=== PATIENT | male | born 1965 | race Native Hawaiian/Other Pacific Islander ===

== ENCOUNTER 2019-04-22 07:02 | Outpatient (CLI) | payer BC ==
[2019-04-22 07:42] LABS: PLATELET COUNT 178 K/uL (142-355)
[2019-04-22 08:05] LABS: POTASSIUM 3.6 mmol/L (3.6-5.2)
== END 2019-04-22 20:59 | disposition home or self-care (01) ==
LOC: LABW 07:02
PROVIDERS: Internal Medicine
DX: R60.9 Edema, unspecified (principal)
CPT/HCPCS: 36415; 80053; 80061; 83036; 84153; 84439; 84443; 84550; 85027; 85651

== ENCOUNTER 2020-09-29 11:58 | Outpatient (CLI) | payer OTHER | END 2020-09-29 20:23 | disposition home or self-care (01) | LOC: RAD 11:58 | DX: U07.1 COVID-19 (principal) ==

== ENCOUNTER 2021-04-11 07:55 | Outpatient (CLI) | payer BC ==
[~2021-04-11] VITALS: Ht 170.2 cm; Wt 136.1 kg
== END 2021-04-11 19:31 | disposition home or self-care (01) ==
LOC: DIABINF 07:55
PROVIDERS: ATTEND Internal Medicine Endocrinology, Diabetes & Metabolism
DX: E88.81 Metabolic syndrome and other insulin resistance (principal); E66.01 Morbid (severe) obesity due to excess calories; Z68.42 Body mass index [BMI] 45.0-49.9, adult; G47.33 Obstructive sleep apnea (adult) (pediatric); I10 Essential (primary) hypertension; E78.2 Mixed hyperlipidemia; N18.2 Chronic kidney disease, stage 2 (mild)
CPT/HCPCS: 82948; 96365; 96366; 96521; J1815; J1817

== ENCOUNTER 2021-04-12 07:33 | Outpatient (CLI) | payer BC ==
[~2021-04-12] VITALS: Ht 170.2 cm; Wt 138.8 kg
== END 2021-04-12 21:21 | disposition home or self-care (01) ==
LOC: DIABINF 07:33
PROVIDERS: ATTEND Internal Medicine Endocrinology, Diabetes & Metabolism
DX: E88.81 Metabolic syndrome and other insulin resistance (principal); E66.01 Morbid (severe) obesity due to excess calories; Z68.42 Body mass index [BMI] 45.0-49.9, adult; G47.33 Obstructive sleep apnea (adult) (pediatric); I10 Essential (primary) hypertension; E78.2 Mixed hyperlipidemia; N18.2 Chronic kidney disease, stage 2 (mild)
CPT/HCPCS: 82948; 96365; 96366; 96521; J1815; J1817

== ENCOUNTER 2021-04-18 07:44 | Outpatient (CLI) | payer BC ==
[~2021-04-18] VITALS: Ht 170.2 cm; Wt 138.8 kg
== END 2021-04-18 22:02 | disposition home or self-care (01) ==
LOC: DIABINF 07:44
PROVIDERS: ATTEND Internal Medicine Endocrinology, Diabetes & Metabolism
DX: E88.81 Metabolic syndrome and other insulin resistance (principal); E66.01 Morbid (severe) obesity due to excess calories; Z68.42 Body mass index [BMI] 45.0-49.9, adult; G47.33 Obstructive sleep apnea (adult) (pediatric); I10 Essential (primary) hypertension; E78.2 Mixed hyperlipidemia; N18.2 Chronic kidney disease, stage 2 (mild)
CPT/HCPCS: 82948; 96365; 96366; 96521; J1815; J1817

== ENCOUNTER 2021-04-20 07:30 | Outpatient (CLI) | payer BC ==
[~2021-04-20] VITALS: Ht 170.2 cm; Wt 138.8 kg
== END 2021-04-20 19:06 ==
LOC: DIABINF 07:30
PROVIDERS: ATTEND Internal Medicine Endocrinology, Diabetes & Metabolism
DX: E88.81 Metabolic syndrome and other insulin resistance (principal); E66.01 Morbid (severe) obesity due to excess calories; Z68.42 Body mass index [BMI] 45.0-49.9, adult; G47.33 Obstructive sleep apnea (adult) (pediatric); I10 Essential (primary) hypertension; E78.2 Mixed hyperlipidemia; N18.2 Chronic kidney disease, stage 2 (mild)
CPT/HCPCS: 82948; 96365; 96366; 96521; J1815; J1817

== ENCOUNTER 2021-04-25 07:46 | Outpatient (CLI) | payer BC ==
[~2021-04-25] VITALS: Ht 170.2 cm; Wt 138.8 kg
== END 2021-04-25 19:08 | disposition home or self-care (01) ==
LOC: DIABINF 07:46
PROVIDERS: ATTEND Internal Medicine Endocrinology, Diabetes & Metabolism
DX: E88.81 Metabolic syndrome and other insulin resistance (principal); E66.01 Morbid (severe) obesity due to excess calories; Z68.42 Body mass index [BMI] 45.0-49.9, adult; G47.33 Obstructive sleep apnea (adult) (pediatric); I10 Essential (primary) hypertension; E78.2 Mixed hyperlipidemia; N18.2 Chronic kidney disease, stage 2 (mild)
CPT/HCPCS: 82948; 96365; 96366; 96521; J1815; J1817

== ENCOUNTER 2021-05-01 08:18 | Outpatient (CLI) | payer BC | END 2021-05-01 21:44 | disposition home or self-care (01) | LOC: DIABINF 08:18 | PROVIDERS: ATTEND Internal Medicine Endocrinology, Diabetes & Metabolism | DX: E88.81 Metabolic syndrome and other insulin resistance (principal); E66.01 Morbid (severe) obesity due to excess calories; Z68.42 Body mass index [BMI] 45.0-49.9, adult; G47.33 Obstructive sleep apnea (adult) (pediatric); I10 Essential (primary) hypertension; E78.2 Mixed hyperlipidemia; N18.2 Chronic kidney disease, stage 2 (mild) | CPT/HCPCS: 82948; 96365; 96366; 96521; J1817 ==

== ENCOUNTER 2021-05-09 07:51 | Outpatient (CLI) | payer BC ==
[~2021-05-09] VITALS: Ht 170.2 cm; Wt 138.8 kg
== END 2021-05-09 19:18 | disposition home or self-care (01) ==
LOC: DIABINF 07:51
PROVIDERS: ATTEND Internal Medicine Endocrinology, Diabetes & Metabolism
DX: E88.81 Metabolic syndrome and other insulin resistance (principal); E66.01 Morbid (severe) obesity due to excess calories; Z68.42 Body mass index [BMI] 45.0-49.9, adult; G47.33 Obstructive sleep apnea (adult) (pediatric); I10 Essential (primary) hypertension; N18.2 Chronic kidney disease, stage 2 (mild)
CPT/HCPCS: 82948; 96365; 96366; 96521; J1815; J1817

== ENCOUNTER 2021-05-16 07:27 | Outpatient (CLI) | payer BC | END 2021-05-16 11:30 | disposition home or self-care (01) | LOC: DIABINF 07:27 | PROVIDERS: ATTEND Internal Medicine Endocrinology, Diabetes & Metabolism | DX: E88.81 Metabolic syndrome and other insulin resistance (principal); E66.01 Morbid (severe) obesity due to excess calories; Z68.42 Body mass index [BMI] 45.0-49.9, adult; G47.33 Obstructive sleep apnea (adult) (pediatric); I10 Essential (primary) hypertension; E78.2 Mixed hyperlipidemia; N18.2 Chronic kidney disease, stage 2 (mild) | CPT/HCPCS: 82948; 96365; 96366; 96521; J1817 ==

== ENCOUNTER 2021-12-22 08:25 | Outpatient (CLI) | payer OTHER | END 2021-12-22 23:04 | disposition home or self-care (01) | LOC: MRI 08:25 | PROVIDERS: ATTEND Orthopaedic Surgery Sports Medicine | DX: S83.241D Other tear of medial meniscus, current injury, right knee, subsequent encounter (principal); Y92.9 Unspecified place or not applicable ==

== ENCOUNTER 2022-08-09 08:05 | Outpatient (CLI) | payer OTHER | END 2022-08-09 20:48 | disposition home or self-care (01) | LOC: MRI 08:05 | PROVIDERS: ATTEND Physician Assistant | DX: M76.61 Achilles tendinitis, right leg (principal) ==